=== PATIENT | female | born 1975 | race Caucasian/White ===

== ENCOUNTER 2022-08-25 14:01 | Outpatient (CLI) | payer BC, SELFPAY ==
--- NOTE | ~2022-08-25 | MR_ITS ---
MRI of the right ankle Clinical history: Peroneal tendinitis Technique: Coronal proton-density and proton-density fat-sat images, axial proton-density and proton- density fat-sat images, and sagittal proton-density and proton-density fat-sat images were acquired. Findings: Syndesmotic ligaments are intact. Posterior talofibular ligament is intact. There is suscep tibility artifact at the distal fibula, limiting visualization of the calcaneofibular and anterior ta lofibular ligaments. Anterior talofibular ligament suspected to be intact. Deltoid ligament is intact . Medial flexor tendons, anterior extensor tendons, and Achilles tendon are intact. Peroneal tendons ar e probably intact, although again there is focal susceptibility artifact at the tip of the lateral ma lleolus which obscures visualization. No osteochondral lesion of the talar dome identified. Visualized bone marrow signals are unremarkable . Joint spaces are preserved. Small subtalar joint effusion present. Plantar fascia is intact. No mass lesion or fluid collection evident. Normal signal preserved in the sinus Tarsi. Impression: Susceptibility artifact at the lateral malleolus focally obscures visualization of the peroneal tendo ns and lateral ankle ligaments. Correlate with prior surgical history in this region. No gross ligame ntous injury or peroneal tendon abnormality identified. Reviewed, dictated and finalized at [facility]. Impression: Susceptibility artifact at the lateral malleolus focally obscures visualization of the peroneal tendons and lateral ankle ligaments. Correlate with prior surg ical history in this region. No gross ligamentous injury or peroneal tendon abn ormality identified.
== END 2022-08-25 14:02 | disposition home or self-care (01) ==
PROVIDERS: PCP Family Medicine; Visit Provider Orthopaedic Surgery
DX: M76.71 Peroneal tendinitis, right leg (principal); M25.571 Pain in right ankle and joints of right foot
CPT/HCPCS: 73721